=== PATIENT | female | born 1960 | race Caucasian/White ===

== ENCOUNTER 2018-04-14 14:04 | Day surgery (SDC) | payer MEDICAID ==
[2018-04-14] VITALS (8 sets, daily range): BP systolic 98–121; BP diastolic 62–82
[~2018-04-14] VITALS: Ht 160 cm; Wt 81.1 kg
[~2018-04-14 14:04] MED LIST: ANAS1TAB PO; ASPI81TA52 PO; CALC-793 PO; DIAZ5TAB4 PO; ESCI20TA PO; EZET10TA14 PO; LISI-642 PO; METO50TA7 PO; OMEP20TA5 PO; Oyster Shell Calcium PO; SIMV20TA5 PO; SUPER B COMPLEX PO
[2018-04-14] MEDS ORDERED: LORazepam 0.5 MG tablet PO ONE (14:15)
[2018-04-14] MEDS ORDERED: diphenhydrAMINE 25mg capsule PO ONE (14:15)
[2018-04-14] MEDS ORDERED: normal saline 1000ml 1,000 ML IV SCH (14:15)
[2018-04-14] MEDS ORDERED: ERGO500054 PO (14:30)
[2018-04-14] MEDS ORDERED: FURO20TA4 PO (14:30)
[2018-04-14] MEDS ORDERED: POTA10CA44 PO (14:30)
[2018-04-14] MEDS ORDERED: CALC500T43 PO (14:31)
[2018-04-14] MEDS ORDERED: CYAN250014 PO (14:33)
[2018-04-14] MEDS ORDERED: IRON PO (14:33)
[2018-04-14] MEDS ORDERED: HYDR-3686 PO (14:33)
[2018-04-14] MEDS ORDERED: heparin 1,000unit/ml 10ml vial 10 ML ONE (17:04)
[2018-04-14] MEDS ORDERED: nitroGLYCERIN-Tridil 50MG/D5W 250 ML IV ONE (17:04)
[2018-04-14] MEDS ORDERED: verapamil 2.5 mg/ml inj IV ONE (17:05)
[2018-04-14] MEDS ORDERED: ondansetron/PF 4mg/2ml inj IV PRN (19:15)
[2018-04-14] MEDS ORDERED: OXAZEpam 15mg capsule PO PRN (19:15)
[2018-04-14] MEDS ORDERED: proCHLORperazine 10 MG/2 ml inj IV PRN (19:15)
== END 2018-04-14 20:10 | disposition home or self-care (01) ==
LOC: SSTAY O 14:04
PROVIDERS: ATTEND Internal Medicine Interventional Cardiology
DX: I25.118 Atherosclerotic heart disease of native coronary artery with other forms of angina pectoris (principal); I25.2 Old myocardial infarction; E78.5 Hyperlipidemia, unspecified; I27.20 Pulmonary hypertension, unspecified; J44.9 Chronic obstructive pulmonary disease, unspecified; G47.33 Obstructive sleep apnea (adult) (pediatric); I11.0 Hypertensive heart disease with heart failure; I50.9 Heart failure, unspecified; I34.0 Nonrheumatic mitral (valve) insufficiency; I42.8 Other cardiomyopathies; F10.10 Alcohol abuse, uncomplicated; F15.11 Other stimulant abuse, in remission; F32.9 Major depressive disorder, single episode, unspecified; F41.8 Other specified anxiety disorders; Z98.51 Tubal ligation status; Z87.891 Personal history of nicotine dependence; Z92.21 Personal history of antineoplastic chemotherapy; Z86.73 Personal history of transient ischemic attack (TIA), and cerebral infarction without residual deficits; Z95.810 Presence of automatic (implantable) cardiac defibrillator; Z99.81 Dependence on supplemental oxygen; Z86.74 Personal history of sudden cardiac arrest; Z85.3 Personal history of malignant neoplasm of breast; Z95.5 Presence of coronary angioplasty implant and graft; Z79.82 Long term (current) use of aspirin; Z79.899 Other long term (current) drug therapy; Z98.890 Other specified postprocedural states; Z82.3 Family history of stroke
CPT/HCPCS: 93005; 93451; 99152; 99153; J1644; J7030; Q0163; A4620; C1769; J3490